=== PATIENT | female | born 2000 | race Caucasian/White ===

== ENCOUNTER 2022-05-28 15:22 | Emergency (ER) | payer OTHER | END 2022-05-28 16:21 | disposition home or self-care (01) | LOC: JD.ED 15:22 | DX: S06.0X0A Concussion without loss of consciousness, initial encounter (principal); W22.8XXA Striking against or struck by other objects, initial encounter; Y92.89 Other specified places as the place of occurrence of the external cause | CPT/HCPCS: 99283 ==

== ENCOUNTER 2023-07-23 02:07 | Emergency (ER) | payer BC, OTHER ==
[2023-07-23 02:30] LABS: BASOPHILS PERCENT AUTO 0.4 % (0.0-1.0); EOSINOPHILS ABSOLUTE AUTO 0.1 K/mm3 (0.0-0.4); EOSINOPHILS PERCENT AUTO 1.6 % (0.0-6.0); HEMATOCRIT 41.5 % (37.0-47.0); HEMOGLOBIN 13.9 gm/dl (12.0-16.0); IMMATURE GRAN ABSOLUTE AUTO 0.02 K/mm3 (0.00-0.05); IMMATURE GRAN PERCENT AUTO 0.3 % (0.0-0.4); LYMPHOCYTES ABSOLUTE AUTO 3.1 K/mm3 (1.0-4.8); LYMPHOCYTES PERCENT AUTO 42.4 % (24.0-44.0); MEAN CORPUSCULAR HEMOGLOBIN 28.9 pg (28.0-32.0); MEAN CORPUSCULAR HGB CONC 33.5 g/dl (32.0-36.0); MEAN CORPUSCULAR VOLUME 86.3 fl (83.0-99.0); MEAN PLATELET VOLUME 9.7 fl (9.4-12.3); MONOCYTES ABSOLUTE AUTO 0.4 K/mm3 (0.0-0.8); MONOCYTES PERCENT AUTO 5.1 % (0.0-8.0); NEUTROPHILS ABSOLUTE AUTO 3.7 K/mm3 (1.8-7.7); NEUTROPHILS PERCENT AUTO 50.2 % (41.0-71.0); PLATELET COUNT,PLT 328 K/mm3 (150-400); RED BLOOD CELL COUNT 4.81 M/mm3 (4.10-5.30); WHITE BLOOD CELL COUNT,WBC 7.29 K/mm3 (3.9-11.3)
[2023-07-23] MEDS: Sodium Chloride 0.9% 10 ML Syringe FLUSH PRN (02:33)
[2023-07-23] MEDS: Sodium Chloride 0.9% 1,000 ML IV ONE (02:33)
[2023-07-23] MEDS: Ketorolac 30 MG/ML SDV IVPUSH ONE (02:41)
[2023-07-23 02:52] LABS: ANION GAP 16.7 (5-15); BILIRUBIN TOTAL 0.2 mg/dL (0.2-1.0); BUN/CREATININE RATIO 18.2 (14-18); CALCIUM 8.9 mg/dL (8.5-10.1); CREATININE 1.1 mg/dL (0.55-1.02); EST CRCL DRUG DOSING (CG) 67.51 mL/min; MAGNESIUM 1.8 mg/dL (1.8-2.4); POTASSIUM,K 3.7 mEq/L (3.5-5.1); PROTEIN TOTAL,TP 8.1 g/dl (6.4-8.2)
[2023-07-23] MEDS: Ondansetron 4 MG/2 ML SDV IVPUSH ONE (03:24)
[2023-07-23] MEDS: Iopamidol 612 MG/ML 100 ML Bottle IVPUSH ONE (03:57)
[2023-07-23] MEDS ORDERED: Naloxone 0.4 MG/ML SDV IVPUSH PRN (04:05)
[2023-07-23] MEDS: HYDROmorphone 1 MG/ML Syringe IVPUSH ONE (04:09)
== END 2023-07-23 04:37 | disposition home or self-care (01) ==
LOC: JD.ED 02:07
DX: N13.2 Hydronephrosis with renal and ureteral calculous obstruction (principal)
CPT/HCPCS: 36415; 74177; 74177-26; 80053; 83735; 84702; 84703; 85025; 96374; 96375; 99283; 99284-25; J1170; J1885; J2405; J3490; J7030; Q9967

== ENCOUNTER 2024-08-03 21:23 | Emergency (ER) | payer BC, OTHER ==
[2024-08-03] MEDS: Acetaminophen 325 MG Tab PO ONE (21:53)
== END 2024-08-03 21:56 | disposition home or self-care (01) ==
LOC: JD.ED 21:23
DX: O99.891 Other specified diseases and conditions complicating pregnancy (principal); M79.662 Pain in left lower leg; Z79.82 Long term (current) use of aspirin
CPT/HCPCS: 99283; A9270

== ENCOUNTER 2024-11-25 15:44 | Inpatient (IN) | payer BC, OTHER ==
[2024-11-25 18:58] LABS: BASOPHILS ABSOLUTE AUTO 0.0 K/mm3 (0.0-0.2); BASOPHILS PERCENT AUTO 0.2 % (0.0-1.0); EOSINOPHILS ABSOLUTE AUTO 0.0 K/mm3 (0.0-0.4); EOSINOPHILS PERCENT AUTO 0.3 % (0.0-6.0); IMMATURE GRAN ABSOLUTE AUTO 0.03 K/mm3 (0.00-0.05); IMMATURE GRAN PERCENT AUTO 0.3 % (0.0-0.4); LYMPHOCYTES ABSOLUTE AUTO 1.5 K/mm3 (1.0-4.8); LYMPHOCYTES PERCENT AUTO 15.8 % (24.0-44.0); MEAN PLATELET VOLUME 9.7 fl (9.4-12.3); MONOCYTES ABSOLUTE AUTO 0.4 K/mm3 (0.0-0.8); MONOCYTES PERCENT AUTO 4.5 % (0.0-8.0); NEUTROPHILS ABSOLUTE AUTO 7.6 K/mm3 (1.8-7.7); NEUTROPHILS PERCENT AUTO 78.9 % (41.0-71.0); NRBC ABSOLUTE 0.00 (0.00-0.02); NRBC PERCENT 0.0 % (0.0-0.2); PLATELET COUNT,PLT 261 K/mm3 (150-400); RED BLOOD CELL COUNT 4.05 M/mm3 (4.10-5.30); WHITE BLOOD CELL COUNT,WBC 9.59 K/mm3 (3.9-11.3)
[2024-11-25] MEDS: Misoprostol 25 MCG (1/4 of 100 MCG) Tab VAG ONE (19:35)
[2024-11-25] MEDS: Misoprostol 25 MCG (1/4 of 100 MCG) Tab VAG SCH (23:00)
[2024-11-26] MEDS: Lactated Ringers 1,000 ML IV SCH (02:38)
[2024-11-26] MEDS: Sodium Chloride 0.9% 10 ML Syringe FLUSH SCH (03:12)
[2024-11-26] MEDS: Oxytocin/0.9 % Sodium Chloride 30 UNIT/500 ML BAG IV SCH (03:55)
[2024-11-26] MEDS: Nalbuphine 10 MG/1 ML Vial IVPUSH PRN (04:22)
[2024-11-26] MEDS ORDERED: ePHEDrine 50 MG/ML SDV IVPUSH PRN (07:18)
[2024-11-26] MEDS ORDERED: diphenhydrAMINE 50 MG/ML SDV IVPUSH PRN (07:18)
[2024-11-26] MEDS: Ondansetron 4 MG/2 ML SDV IVPUSH PRN (07:24)
[2024-11-26] MEDS: Bupivacaine/fentaNYL/NS 100 ML Bag EPIDUR PRN (07:32)
[2024-11-26] MEDS: Witch Hazel Medicated Pads 40/Jar TOP PRN (18:44)
[2024-11-26] MEDS: Benzocaine/Menthol 20%-0.5% Spray 78 GM Cannister TOP PRN (18:44)
== END 2024-11-28 14:01 | disposition home or self-care (01) | DRG 560 ==
LOC: JD.OB 15:44 → OBSVTOIN 11-26 15:44 → JD.OB 11-26 15:45
PROVIDERS: ADMIT Obstetrics & Gynecology; ATTEND Obstetrics & Gynecology
PROC: 10E0XZZ Delivery of Products of Conception, External Approach (ICD-10-PCS; principal; 2024-11-26)
PROC: 3E0R3BZ Introduction of Anesthetic Agent into Spinal Canal, Percutaneous Approach (ICD-10-PCS; principal; 2024-11-26)
DX: O99.214 Obesity complicating childbirth (principal); O70.1 Second degree perineal laceration during delivery; Z3A.39 39 weeks gestation of pregnancy; Z37.0 Single live birth; Z79.82 Long term (current) use of aspirin; Z79.899 Other long term (current) drug therapy
CPT/HCPCS: 01967; 36415; 51702; 59025; 59409; 85025; 86592; 86850; 86900; 86901; A9270-GY; J2300; J2405; J3490; J7120; J7999

== ENCOUNTER 2025-02-07 09:46 | Day surgery (SDC) | payer BC, OTHER ==
[~2025-02-07 09:46] MED LIST: Sodium Chloride 0.9% 10 ML Syringe FLUSH PRN; Sodium Chloride 0.9% 10 ML Syringe FLUSH SCH
[2025-02-07] MEDS ORDERED: EPINEPHrine 1 MG/ML SDV ONE (10:07)
[2025-02-07] MEDS ORDERED: Sodium Chloride 0.9% 50 ML SDV ONE (10:12)
[2025-02-07] MEDS: Lactated Ringers 1,000 ML IV SCH (10:15)
[2025-02-07] MEDS ORDERED: Dexamethasone 4 MG/ML 5 ML MDV ONE (10:44)
[2025-02-07] MEDS ORDERED: fentaNYL 100 MCG/2 ML SDV ONE ×2 (10:44→11:13)
[2025-02-07] MEDS ORDERED: Propofol 200 MG/20 ML SDV ONE (10:44)
[2025-02-07] MEDS ORDERED: Ondansetron 4 MG/2 ML SDV ONE (10:44)
[2025-02-07 10:59] LABS: BASOPHILS ABSOLUTE AUTO 0.0 K/mm3 (0.0-0.2); BASOPHILS PERCENT AUTO 0.6 % (0.0-1.0); EOSINOPHILS ABSOLUTE AUTO 0.1 K/mm3 (0.0-0.4); EOSINOPHILS PERCENT AUTO 1.8 % (0.0-6.0); IMMATURE GRAN ABSOLUTE AUTO 0.01 K/mm3 (0.00-0.05); IMMATURE GRAN PERCENT AUTO 0.2 % (0.0-0.4); LYMPHOCYTES ABSOLUTE AUTO 1.7 K/mm3 (1.0-4.8); LYMPHOCYTES PERCENT AUTO 30.5 % (24.0-44.0); MEAN PLATELET VOLUME 9.8 fl (9.4-12.3); MONOCYTES ABSOLUTE AUTO 0.3 K/mm3 (0.0-0.8); MONOCYTES PERCENT AUTO 6.2 % (0.0-8.0); NEUTROPHILS ABSOLUTE AUTO 3.3 K/mm3 (1.8-7.7); NEUTROPHILS PERCENT AUTO 60.7 % (41.0-71.0); NRBC ABSOLUTE 0.00 (0.00-0.02); NRBC PERCENT 0.0 % (0.0-0.2); PLATELET COUNT,PLT 270 K/mm3 (150-400); RED BLOOD CELL COUNT 4.43 M/mm3 (4.10-5.30); WHITE BLOOD CELL COUNT,WBC 5.45 K/mm3 (3.9-11.3)
[2025-02-07] MEDS ORDERED: propofoL 500 MG/50 ML 50 ML ONE (11:10)
[2025-02-07 11:14] LABS: A/G RATIO 0.9 (1-2); ALANINE AMINOTRANSFERASE,ALT 121.0 U/L (14-59); ASPARTATE AMNIOTRANSFERASE,AST 33.0 U/L (15-37); BILIRUBIN TOTAL 0.2 mg/dL (0.2-1.0); BLOOD UREA NITROGEN,BUN 18.0 mg/dL (7-18); CARBON DIOXIDE,CO2 31.0 mEq/L (21-32); CHLORIDE,CL 104.0 mEq/L (98-107); CREATININE 0.9 mg/dL (0.55-1.02); EST CRCL DRUG DOSING (CG) 81.8 mL/min; ESTIMATED GFR 90.0 mL/min (>60); GLUCOSE RANDOM 86.0 mg/dL (70-99); POTASSIUM,K 4.2 mEq/L (3.5-5.1); PROTEIN TOTAL,TP 7.2 g/dl (6.4-8.2); SODIUM,NA 143.0 mEq/L (136-145)
[2025-02-07] MEDS ORDERED: fentaNYL 100 MCG/2 ML SDV IVPUSH PRN (11:28)
[2025-02-07] MEDS: Iopamidol 612 MG/ML 30 ML SDV ONE (11:50)
[2025-02-07] MEDS: Ondansetron 4 MG/2 ML SDV IVPUSH PRN (12:45)
[2025-02-07] MEDS: Ketorolac 30 MG/ML SDV IVPUSH ONE (13:05)
== END 2025-02-07 15:20 | disposition home or self-care (01) ==
LOC: JD.SDS 09:46
PROVIDERS: ATTEND Surgery
DX: K80.10 Calculus of gallbladder with chronic cholecystitis without obstruction (principal); K85.90 Acute pancreatitis without necrosis or infection, unspecified; Z91.09 Other allergy status, other than to drugs and biological substances
CPT/HCPCS: 36415; 47563; 74300; 80053; 81025; 83690; 85025; A9270; J0169; J0665; J0690; J1100; J1885; J2003; J2405; J2704; J3010; J7120; Q9967; 00790; 76000; J1171; J3490